=== PATIENT | male | born 1940 | race African-American/Black ===

== ENCOUNTER 2017-02-25 09:45 | Emergency (ER) | payer MEDICARE, OTHER ==
[~2017-02-25] VITALS: Ht 172.7 cm; Wt 75.0 kg
[~2017-02-25 09:45] MED LIST: ASPIR-LOW81 MG PO; ASPIRIN 81M81 MG/TA2 PO; ASPIRIN E.C. 8181 MG PO; CELEXA10 MG PO; CRESTOR20 MG PO; FORTAMET1000 MG PO; GLUCOPHAGE1000 MG PO; LISINOPRIL PO; NIACIN; NORVASC 10MG10 MG PO; PLAVIX 75MG TAB75 MG PO; STOOL SOFTENER100 M2 PO; STOOL SOFTENER100 MG PO; TURMERIC1 POW PO; VICODIN PO; Vitamin B PO; ZOCOR PO
[2017-02-25 09:59] VITALS: TEMP 97
[2017-02-25 11:23] LABS: BASO % 0.3 % (0.0-2.0); EOS % 0.2 % (0-4.0); GRAN # 5.7 (1.4-6.5); GRAN % 65.5 % (42.2-75.2); LYMPH # 2.3 (1.2-3.4); LYMPH % 26.1 % (20.0-51.0); MEAN CELL VOLUME 93 fl (80.0-100.0); MEAN CORPUSCULAR HGB CONC 33 g/dl (33.0-37.0); MEAN PLATELET VOLUME 9.1 fl (7.4-10.4); MONO # 0.7 (0.1-0.6); MONO % 7.7 % (1.7-9.3); PLATELET COUNT 277 K/mm3 (130-400); RED BLOOD COUNT 3.67 M/mm3 (4.20-5.60); REDCELL DISTRIBUTION WIDTH-CV 14.4 % (11.5-14.5); WHITE BLOOD COUNT 8.7 K/mm3 (4.8-10.8)
[2017-02-25 11:24] LABS: HEMOGLOBIN 11.3 g/dl (13.5-18.0); MEAN CORPUSCULAR HEMOGLOBIN 31 pg (27.0-31.0)
[2017-02-25 11:29] LABS: INR 1.1 (0.8-3.0); PROTHROMBIN TIME 12.5 SECONDS (9.7-12.8)
[2017-02-25 11:31] LABS: PARTIAL THROMBOPLASTIN TIME 29.4 SECONDS (26.0-37.0)
[2017-02-25 11:58] LABS: ALANINE AMINOTRANSFERASE 41 U/L (21-72); ALBUMIN 3.5 gm/dL (3.5-5.0); ALKALINE PHOSPHATASE 93 U/L (50-136); ANION GAP 8 mmol/L (7-16); BILIRUBIN,TOTAL 0.7 mg/dL (0.0-1.0); BLOOD UREA NITROGEN 7 mg/dL (9-20); CALCIUM 8.6 mg/dL (8.4-10.2); CARBON DIOXIDE 27 mmol/L (22-30); CHLORIDE 103 mmol/L (98-107); CREATININE, serum 0.79 mg/dL (0.66-1.25); GLUCOSE 139 mg/dL (74-106); POTASSIUM 3.8 mmol/L (3.4-5.0); SODIUM 138 mmol/L (137-145); TOTAL PROTEIN 6.4 gm/dL (6.4-8.2)
[2017-02-25 12:11] LABS: TROPONIN-I < 0.012 ng/mL (0.000-0.034)
[2017-02-25 13:16] LABS: PH 7 (5-8); SQUAMOUS EPITHELIAL 0-2 /hpf; URINE APPEARANCE Clear; URINE BACTERIA None Seen /hpf; URINE BILIRUBIN Negative (NEGATIVE); URINE BLOOD 3+ (NEGATIVE); URINE COLOR Yellow; URINE GLUCOSE 1+ (NEGATIVE); URINE KETONE Negative (NEGATIVE); URINE RBC >50 /hpf; URINE UROBILINOGEN Negative (NEGATIVE); URINE WBC >50 /hpf
[2017-02-25] MEDS ORDERED: CIPRO 500MG TA500 MG PO (15:15)
[2017-02-25 16:47] VITALS: BP 125/78; PULSE 77
== END 2017-02-25 16:48 | disposition home or self-care (01) ==
LOC: COL.ER 09:45
PROVIDERS: Emergency Medicine
DX: N39.0 Urinary tract infection, site not specified (principal); I10 Essential (primary) hypertension; R31.9 Hematuria, unspecified; E11.9 Type 2 diabetes mellitus without complications; Z87.891 Personal history of nicotine dependence; Z79.84 Long term (current) use of oral hypoglycemic drugs; Z79.82 Long term (current) use of aspirin; Z90.49 Acquired absence of other specified parts of digestive tract; Z98.890 Other specified postprocedural states
CPT/HCPCS: J0696; J7030

== ENCOUNTER → 2018-05-03 | Outpatient (CLI) | payer MEDICARE, OTHER ==
[~2018-05-03] MED LIST changes: +CIPRO 500MG TA500 MG PO
== END ==
LOC: COL.RAD 14:38
DX: R41.89 Other symptoms and signs involving cognitive functions and awareness (principal)

== ENCOUNTER 2021-02-11 12:37 | Emergency (ER) | payer MEDICARE, OTHER ==
[~2021-02-11] VITALS: Ht 172.7 cm; Wt 80.0 kg
[2021-02-11] MEDS ORDERED: PLAVIX 75MG TAB75 MG PO (13:18)
[2021-02-11 13:19] VITALS: TEMP 97.7
[2021-02-11 13:39] LABS: INR 1.2 (0.8-3.0); PROTHROMBIN TIME 13.1 SECONDS (9.7-12.8)
[2021-02-11 13:42] LABS: PARTIAL THROMBOPLASTIN TIME 29.2 SECONDS (26.0-37.0)
[2021-02-11 13:43] LABS: BASO # 0.1 (0.0-0.2); BASO % 0.6 % (0.0-2.0); EOS % 0.3 % (0-4.0); GRAN # 6.4 (1.4-6.5); GRAN % 67.4 % (42.2-75.2); LYMPH # 2.2 (1.2-3.4); LYMPH % 22.6 % (20.0-51.0); MEAN CELL VOLUME 82 fl (80.0-100.0); MEAN CORPUSCULAR HGB CONC 31 g/dl (33.0-37.0); MEAN PLATELET VOLUME 8.9 fl (7.4-10.4); MONO # 0.8 (0.1-0.6); MONO % 8.7 % (1.7-9.3); PLATELET COUNT 327 K/mm3 (130-400); REDCELL DISTRIBUTION WIDTH-CV 15.1 % (11.5-14.5)
[2021-02-11 13:44] LABS: HEMOGLOBIN 8.6 g/dl (13.5-18.0); MEAN CORPUSCULAR HEMOGLOBIN 25 pg (27.0-31.0)
[2021-02-11 13:50] LABS: ALANINE AMINOTRANSFERASE 20 U/L (4-49); ALBUMIN 4.5 gm/dL (3.5-5.0); ALKALINE PHOSPHATASE 79 U/L (50-136); ANION GAP 13 mmol/L (7-16); AST,SGOT 31 U/L (15-37); BILIRUBIN,TOTAL 0.5 mg/dL (0.0-1.0); BLOOD UREA NITROGEN 14 mg/dL (9-20); CALCIUM 9.4 mg/dL (8.4-10.2); CARBON DIOXIDE 21 mmol/L (22-30); CHLORIDE 103 mmol/L (98-107); CREATININE, serum 0.92 (0.66-1.25); GLUCOSE 168 mg/dL (74-106); SODIUM 137 mmol/L (137-145); TOTAL PROTEIN 7.9 gm/dL (6.4-8.2)
[2021-02-11 14:01] LABS: TROPONIN-I < 0.012 ng/mL (0.000-0.035)
[2021-02-11 14:43] LABS: COLLECTION METHOD CLEAN CATCH
[2021-02-11 14:52] LABS: MUCOUS Present /lpf; PH 5 (5-8); SQUAMOUS EPITHELIAL 0-2 /hpf; URINE APPEARANCE Clear; URINE BACTERIA None Seen /hpf; URINE BILIRUBIN Negative (NEGATIVE); URINE BLOOD Negative (NEGATIVE); URINE COLOR Yellow; URINE GLUCOSE 3+ (NEGATIVE); URINE KETONE 1+ (NEGATIVE); URINE LEUKOCYTE ESTERASE Negative (NEGATIVE); URINE NITRATE Negative (NEGATIVE); URINE PROTEIN(semi-quant) Negative (NEGATIVE); URINE RBC 0-2 /hpf; URINE WBC 0-2 /hpf
[2021-02-11 15:39] VITALS: BP 138/73; PULSE 87
== END 2021-02-11 15:40 | disposition home or self-care (01) ==
LOC: COL.ER 12:37
PROVIDERS: Emergency Medicine
DX: D64.9 Anemia, unspecified (principal); E86.0 Dehydration; R10.13 Epigastric pain; I10 Essential (primary) hypertension; E11.9 Type 2 diabetes mellitus without complications; Z90.49 Acquired absence of other specified parts of digestive tract; Z79.84 Long term (current) use of oral hypoglycemic drugs; Z79.899 Other long term (current) drug therapy
CPT/HCPCS: C9113; J7030

== ENCOUNTER 2021-03-01 13:38 | Day surgery (SDC) | payer MEDICARE, OTHER ==
[~2021-03-01] VITALS: Ht 172.7 cm; Wt 80.9 kg
[2021-03-01 14:23] VITALS: BP 150/81; PULSE 84; TEMP 97.9
[2021-03-01] MEDS ORDERED: PRINIVIL20 MG PO (14:52)
[2021-03-01 15:45] VITALS: BP 127/65; PULSE 80; TEMP 98.4
--- NOTE | 2021-03-01 15:45 | NUR ---
Pt returns to [facility] from [facility], transfers from cart to recliner easily. VSS. Denies pain or nausea, daughter at bedside. Pt given juice and a muffin per request. Call light in reach.
[2021-03-01 16:00] VITALS: BP 143/84; PULSE 70
--- NOTE | 2021-03-01 16:00 | NUR ---
Pt tolerates food and drink well, no n/v or pain. VSS. Discharge instructions provided to pt and his daughter, understanding verbalized.
[2021-03-01 16:15] VITALS: BP 155/81; PULSE 76
--- NOTE | 2021-03-01 16:20 | NUR ---
Dr Koo in to talk with pt, IV discontinued and pt gets dressed and is taken via wheelchair and left in care of daughter at 1625.
== END 2021-03-01 16:25 | disposition home or self-care (01) ==
LOC: SDCO 13:38
DX: Z12.11 Encounter for screening for malignant neoplasm of colon (principal); K64.1 Second degree hemorrhoids; K57.30 Diverticulosis of large intestine without perforation or abscess without bleeding; D64.9 Anemia, unspecified; K21.9 Gastro-esophageal reflux disease without esophagitis; I10 Essential (primary) hypertension; E78.5 Hyperlipidemia, unspecified; J30.9 Allergic rhinitis, unspecified; E11.9 Type 2 diabetes mellitus without complications; Z20.822 Contact with and (suspected) exposure to COVID-19; Z98.0 Intestinal bypass and anastomosis status; Z79.82 Long term (current) use of aspirin; Z79.899 Other long term (current) drug therapy; Z79.01 Long term (current) use of anticoagulants; Z85.46 Personal history of malignant neoplasm of prostate; Z79.84 Long term (current) use of oral hypoglycemic drugs; Z79.02 Long term (current) use of antithrombotics/antiplatelets
CPT/HCPCS: 43239; G0121; J2704; J7120

== ENCOUNTER → 2021-06-12 | Outpatient (CLI) | payer MEDICARE, OTHER ==
[~2021-06-12] MED LIST changes: +PRINIVIL20 MG PO
== END ==
LOC: COL.RAD 12:56
DX: R31.0 Gross hematuria (principal); Z85.46 Personal history of malignant neoplasm of prostate

== ENCOUNTER 2024-01-28 06:55 | Observation (INO) | payer MEDICARE, OTHER ==
[2024-01-28] VITALS (29 sets, daily range): BP systolic 114–161; BP diastolic 59–90; PULSE 70–86; TEMP 97.6–98.4
[~2024-01-28] VITALS: Ht 172.7 cm; Wt 72.7 kg
[~2024-01-28 06:55] MED LIST changes: +ANTIVERT 25MG25 MG PO; +CENTRUM SILVER1 CTB PO; +CYMBALTA 30MG30 MG PO; +FERROUSAL325 MG PO; +FLOMAX 0.40.4 MG/CAP PO; +FLONASEALLERGY NS; +MASON NATURAL2000 IU PO; +MYLICON 8080 MG/TAB. PO; +NESINA25 PO; +NICORETTE2 M1; +TOPROL XL 50MG50 MG PO; +VITAMIN B12 781 TAB PO; +ZANAFLEX2 MG PO
--- NOTE | 2024-01-28 09:52 | NUR ---
SPECIMEN COLLECTED AT [address] BERRIOS.
--- NOTE | 2024-01-28 13:45 | NUR ---
Pt back to CT for chest tube placement, due to collapsed lung following lung biopsy.
--- NOTE | 2024-01-28 13:45 | NUR ---
pt to ct per bed. Monitors applied and O2 continues at 2l/nc. Pt in supine position on ct table.
--- NOTE | 2024-01-28 14:05 | NUR ---
Chest tube placed by Dr Ortega. Dr Ortega evacuated a large volume of air from right lung. Chest tube sutured in place. Dressing to site and Hemilich valve attached to chest tube.
[2024-01-28] MEDS ORDERED: Ondansetron 4 MG/2 ML VIAL IV PRN (14:30)
[2024-01-28] MEDS ORDERED: Acetaminophen 325 MG TAB PO PRN (14:30)
[2024-01-28] MEDS ORDERED: Polyethylene Glycol 3350 17 GM PDS PO PRN (14:30)
[2024-01-28] MEDS ORDERED: Docusate Sodium 100 MG CAP PO PRN (14:30)
[2024-01-28] MEDS ORDERED: Dextrose (Glucose) 15 GM (4 x 3.75 GM) Chewable TABLET PACK PO PRN (14:45)
[2024-01-28] MEDS ORDERED: Glucagon 1 MG VIAL IM PRN (14:45)
[2024-01-28] MEDS ORDERED: Dextrose 50% Water 25 GM/50 ML SYRINGE IV PRN (14:45)
[2024-01-28] MEDS ORDERED: GAS RELIEF 8080 MG PO (15:40)
[2024-01-28] MEDS ORDERED: LOPRESSOR100 MG PO (15:40)
[2024-01-28] MEDS ORDERED: NATURAL IRON65 MG PO (15:40)
[2024-01-28] MEDS ORDERED: ZESTRIL 20MG TA20 MG PO (15:42)
[2024-01-28] MEDS ORDERED: VOLTAREN GEL 1%1 TU TP (15:42)
[2024-01-28] MEDS ORDERED: GLUCOPHAGE XR500 M1 PO (15:45)
[2024-01-28] MEDS ORDERED: NATURAL IRON65 MG (16:02)
[2024-01-28] MEDS ORDERED: MASON NATURAL2000 IU PO (16:03)
[2024-01-28] MEDS ORDERED: LEVAQUIN 5500 MG/TA1 PO (16:04)
--- NOTE | 2024-01-28 16:17 | NUR ---
Per lab, unable to get enough blood for CBC and CMP only able to run CBC. Per Valery, Pt probably dehydrated. Will try in morning. Notified ADRIEN Rasmussen of BP: 161. Per Valery will continue BP meds from [facility] and monitor overnight.
[2024-01-28 16:22] LABS: BASO % 0.2 % (0.0-2.0); EOS # 0.1 K/mm3 (0.0-0.7); EOS % 0.5 % (0.0-4.0); GRAN # 6.1 K/mm3 (1.4-6.5); GRAN % 56.1 % (42.2-75.2); LYMPH # 3.8 K/mm3 (1.2-3.4); LYMPH % 34.5 % (20.0-51.0); MEAN CELL VOLUME 92 fl (80.0-100.0); MEAN CORPUSCULAR HGB CONC 32 g/dl (33.0-37.0); MEAN PLATELET VOLUME 9.3 fl (7.4-10.4); MONO # 0.9 K/mm3 (0.1-0.6); MONO % 8.4 % (1.7-9.3); PLATELET COUNT 208 K/mm3 (130-400); RED BLOOD COUNT 3.06 M/mm3 (4.20-5.60); REDCELL DISTRIBUTION WIDTH-CV 12.7 % (11.5-14.5)
[2024-01-28 16:23] LABS: HEMATOCRIT 28.1 % (42.0-52.0); HEMOGLOBIN 9.1 g/dl (13.5-18.0); MEAN CORPUSCULAR HEMOGLOBIN 30 pg (27-31)
[2024-01-28] MEDS ORDERED: Insulin Lispro (HumaLOG) SQ SCH (17:00)
[2024-01-28] MEDS ORDERED: DULoxetine 30 MG CAP PO SCH (21:00)
[2024-01-28] MEDS ORDERED: Metoprolol Tartrate 50 MG TAB PO SCH (21:00)
[2024-01-29] VITALS (8 sets, daily range): BP systolic 114–136; BP diastolic 66–72; PULSE 72–79; TEMP 98.3–98.7
--- NOTE | 2024-01-29 00:57 | NUR ---
pt lying in bed, alert and oriented x4. denies chest pain and shortness of breath. some tenderness with hiemlich valve sight report, pt denies interventions offered. hiemlich valve site CDI. bruising noted on right ankle skin CDI. pt has no further needs, questions, or concerns at this time. fall precautions in place, call light within reach. will continue to monitor.
[2024-01-29 06:57] LABS: BASO % 0.3 % (0.0-2.0); EOS # 0.1 K/mm3 (0.0-0.7); GRAN # 5.3 K/mm3 (1.4-6.5); GRAN % 57.9 % (42.2-75.2); LYMPH # 2.9 K/mm3 (1.2-3.4); LYMPH % 30.9 % (20.0-51.0); MEAN CELL VOLUME 90 fl (80.0-100.0); MEAN CORPUSCULAR HGB CONC 32 g/dl (33.0-37.0); MEAN PLATELET VOLUME 9.4 fl (7.4-10.4); MONO # 0.9 K/mm3 (0.1-0.6); MONO % 9.5 % (1.7-9.3); PLATELET COUNT 283 K/mm3 (130-400); RED BLOOD COUNT 3.33 M/mm3 (4.20-5.60); REDCELL DISTRIBUTION WIDTH-CV 12.5 % (11.5-14.5)
[2024-01-29 07:07] LABS: HEMOGLOBIN 9.6 g/dl (13.5-18.0); MEAN CORPUSCULAR HEMOGLOBIN 29 pg (27-31)
[2024-01-29 07:13] LABS: CALCIUM 9.4 mg/dL (8.4-10.2); CREATININE, serum 0.99 mg/dL (0.72-1.25); POTASSIUM 4.1 mEq/L (3.5-4.5)
[2024-01-29] MEDS ORDERED: Ferrous Sulfate 325 MG TAB PO SCH (09:00)
[2024-01-29] MEDS ORDERED: Lisinopril 20 MG TAB PO SCH (09:00)
[2024-01-29] MEDS ORDERED: levoFLOXacin 500 MG TAB PO SCH (09:00)
--- NOTE | 2024-01-29 09:07 | NUR ---
SW met with patient to complete initial assessent for discharge planning. Patient verified that he lives in [place] with his step daughter Maribel Armendariz ([phone]) living with him. Patient sees Dr. Beltran as his PCP and uses [facility] pharmacy. Patient states he has a cane, walker, wheelchair, shower chair and grab bars for DME. Patient states his step daughter is his DPOA. He states that he just finished with [facility] last week. Discussed sending referral to start HH again at discharge and patient declined HH at this time stating that his knees are so bad that he doesn't think it will do any good. Patient instructed to contact his PCP if he changes his mind on HH services. Patient plans to return home at discharge. discharge plan: Home
--- NOTE | 2024-01-29 10:47 | NUR ---
PT ALERT AND RESTING IN BED. MEDS GIVEN PER ORDER. CHEST TUBE REMOVED THIS MORNING. BANDAID TO SITE. OXYGEN ON 2 L NASAL CANNULA. INT TO RIGHT ANTECUBITAL. PT STATED THAT HE WAS NOT IN PAIN AND DENIED SHORTNESS OF BREATH. CALL LIGHT WITHIN REACH. BED IN LOWEST POSITION. NO FURTHER NEEDS.
--- NOTE | 2024-01-29 15:17 | NUR ---
INT TO RIGHT ANTECUBITAL DISCONTINUED. PRESSURE DRESSING APPLIED. EDUCATION PROVIDED. PT DISCHARGING WITH FAMILY. TRANSPORTED TO VEHICLE BY WHEELCHAIR. NO FURTHER NEEDS.
--- NOTE | 2024-01-29 15:25 | NUR ---
Reviewed all assessments and notes made by TRINIDAD Pandey. Agree with assessments.
== END 2024-01-29 15:26 | disposition home or self-care (01) ==
LOC: COL.RAD 06:55 → SURG 13:29
PROVIDERS: Physician Assistant; ADMIT Hospitalist
DX: C34.11 Malignant neoplasm of upper lobe, right bronchus or lung (principal); J93.9 Pneumothorax, unspecified; E11.9 Type 2 diabetes mellitus without complications; N39.0 Urinary tract infection, site not specified; R31.9 Hematuria, unspecified; I10 Essential (primary) hypertension; D64.9 Anemia, unspecified; F32.A Depression, unspecified; E53.8 Deficiency of other specified B group vitamins; N40.0 Benign prostatic hyperplasia without lower urinary tract symptoms; Z85.46 Personal history of malignant neoplasm of prostate; Z87.891 Personal history of nicotine dependence; Z90.49 Acquired absence of other specified parts of digestive tract; Z95.828 Presence of other vascular implants and grafts; Z97.8 Presence of other specified devices; Z18.10 Retained metal fragments, unspecified; Z79.84 Long term (current) use of oral hypoglycemic drugs; Z93.1 Gastrostomy status; Z79.899 Other long term (current) drug therapy
CPT/HCPCS: G0378

== ENCOUNTER → 2024-03-21 | Outpatient (CLI) | payer MEDICARE, OTHER ==
[~2024-03-21] MED LIST changes: +Albuterol 0.083% Neb Soln 2.5 MG/3 ML UD IH ONE; +GAS RELIEF 8080 MG PO; +GLUCOPHAGE XR500 M1 PO; +LEVAQUIN 5500 MG/TA1 PO; +LOPRESSOR100 MG PO; +NATURAL IRON65 MG; +NATURAL IRON65 MG PO; +VOLTAREN GEL 1%1 TU TP; +ZESTRIL 20MG TA20 MG PO
== END ==
LOC: COL.CARD 13:13
DX: C34.11 Malignant neoplasm of upper lobe, right bronchus or lung (principal)